=== PATIENT | female | born 1975 | race Caucasian/White ===

== ENCOUNTER → 2016-06-07 | Outpatient (CLI) | payer OTHER ==
[~2016-06-07] MED LIST: ISOVUE-370 76% 100ML VIAL (Q9967) As Ordered ONE
--- NOTE | 2016-06-07 11:18 | REP ---
CT LUMBAR SPINE WITH CONTRAST: HISTORY: Postlaminectomy syndrome. CONTRAST: Isovue 370, 75 mL. There is no disc bulge or herniation at the L1-2 and L2-3 levels. The nerves exit the neural foramina without compression. A diffuse disc bulge is present at the L3-4 level. There is minimal compression of the thecal sac. The L3 nerves exit the neural foramina without compression. A diffuse disc bulge is present at the L4-5 level. There is minimal compression of the thecal sac. There is hypertrophy of the posterior articulating facets. The L4 nerves exit the neural foramina without compression. A diffuse disc bulge is present at the L5-S1 level. There is minimal compression of the thecal sac. There is hypertrophy of the posterior articulating facets. The L5 nerves exit the neural foramina without compression. The L4-5 and L5-S1 intervertebral discs are decreased in height. Vacuum phenomenon is present. There is sclerosis of the end plates of the L5 and S1 vertebral bodies. These findings are consistent with degenerative change. There is no acute fracture or subluxation. IMPRESSION: Diffuse disc bulges at the L3-4 through L5-S1 levels with minimal thecal sac compression. Signed by Yohannes Lanier MD 06/07/2016 11:33 A
--- NOTE | 2016-06-07 11:22 | REP ---
CT THORACIC SPINE WITH CONTRAST: HISTORY: Post laminectomy syndrome. Contrast: Isovue 370, 100 mL. There is no acute fracture or subluxation. There is no disc bulge or herniation. The spinal canal and the neural foramina are patent. A hemangioma is present in the T5 vertebral body. There intervertebral discs are normal in height. Anterior osteophytes are present in the mid and lower thoracic spine. A dorsal column stimulator is present in the spinal canal at the T8-9 level. The stimulator enters the spinal canal at the T9-10 level. Postoperative change is present in the stomach. IMPRESSION: 1. There is no disc bulge or herniation. 2. A dorsal column stimulator is present on the spinal canal at the T8-9 level. ? Signed by Yohannes Lanier MD 06/07/2016 11:30 A
== END ==
LOC: M RAD 09:54
PROVIDERS: ATTEND Physician Assistant
DX: M96.1 Postlaminectomy syndrome, not elsewhere classified (principal); M51.26 Other intervertebral disc displacement, lumbar region